=== PATIENT | male | born 1980 | race Caucasian/White ===

== ENCOUNTER 2017-10-03 15:15 | Emergency (ER) | payer OTHER ==
[~2017-10-03] VITALS: Ht 180.3 cm; Wt 65.0 kg
[2017-10-03 15:19] VITALS: BP 133/85; PULSE 92; RESP 16; TEMP 98.8; O2SAT 99
--- NOTE | 2017-10-03 16:56 | PD ---
HPI Chief Complaint: Oral / Dental Pain or Problem Time Seen by Provider: 16:40 Travel History International Travel<30 days: No Contact w/Intl Traveler<30days: No Traveled to known affect area: No History of Present Illness HPI 37-year-old male presents to the emergency department with complaint of right lower dental pain 5 days with facial swelling onset 4 days ago. Denies fever, vomiting. Denies sore throat, difficulty swallowing, unusual drooling, lump in throat. Rates pain 8/10. Pain is constant. No known relieving factors. Constantly aggravated. Has not taken any medication or try any treatments to alleviate his symptoms. Primary care provider is the [facility]. Does not have a dentist he can follow-up with. No known allergies. Denies significant past medical history. Has no other medical complaints. No other modifying factors or associated signs and symptoms. PFSH Past Medical History Medical History: Denies Significant Hx Tetanus Vaccination: < 5 Years Past Surgical History Surgical History: No Previous Surgery Social History Alcohol Use: No Tobacco Use: No Substance Use: No Allergies-Medications (Allergen,Severity, Reaction): Coded Allergies: No Known Allergies (Unverified , 10/03/17) Reported Meds & Prescriptions Reported Meds & Active Scripts Active Ibuprofen 800 Mg Tab 800 Mg PO Q8H PRN Tramadol (Tramadol HCl) 50 Mg Tab 50 Mg PO Q4H PRN Clindamycin (Clindamycin HCl) 150 Mg Cap 450 Mg PO Q6H 10 Days Deltasone (Prednisone) 20 Mg Tab 20 Mg PO BID 5 Days START 10/04/2017 Review of Systems Except as stated in HPI: all other systems reviewed are Neg Physical Exam Narrative GENERAL: Well-nourished, well-developed patient, in no acute distress ; afebrile, nontoxic-appearing SKIN: Warm and dry. HEAD: Atraumatic. Normocephalic. Right lower facial edema; without erythema, and with tenderness on palpation. No lymphadenopathy. EYES: Pupils equal and round. No scleral icterus. No injection or drainage. ENT: Mucosa pink and moist. No erythema or exudates. No uvular edema. No uvular , palatal, or tonsillar deviation. Airway patent. EARS: Bilateral pinnae and external canals appear within normal limits. Bilateral tympanic membranes without erythema, dullness or perforation. MOUTH: Mucous membranes moist, no lesions, tongue and gums appear normal. Very poor dentition throughout with multiple dental cavities and tooth decay. Right lower dental abscess; gingiva with edema; very minimal outpouching of the gingiva; without fluctuance. NECK: Trachea midline. No lymphadenopathy. CARDIOVASCULAR: Regular rate. RESPIRATORY: No accessory muscle use. GASTROINTESTINAL: Flat. MUSCULOSKELETAL: No obvious deformities. No clubbing. No cyanosis. No edema. NEUROLOGICAL: Awake and alert. Oriented 3. No obvious cranial nerve deficits. Motor grossly within normal limits. Normal speech. PSYCHIATRIC: Appropriate mood and affect; insight and judgment normal. Data Data Last Documented VS Vital Signs Date Time Temp Pulse Resp B/P (MAP) Pulse Ox O2 Delivery O2 Flow Rate FiO2 10/03/17 15:19 98.8 92 16 133/85 (101) 99 Orders Orders Iv Access Insert/Monitor (10/03/17 17:10) Clindamycin 600 Mg/Ns Premix (Cleocin 60 (10/03/17 17:15) Dexamethasone Inj (Decadron Inj) (10/03/17 17:15) Ketorolac Inj (Toradol Inj) (10/03/17 17:15) Acetamin-Hydrocod 325-5 Mg (Beulah 5-325 (10/03/17 17:15) Clindamycin Inj (Cleocin Inj) (10/03/17 17:30) MDM Medical Decision Making Medical Screen Exam Complete: Yes Emergency Medical Condition: Yes Medical Record Reviewed: Yes Differential Diagnosis Dental abscess, dental caries, gingivitis, dentalgia Narrative Course 37-year-old male with very poor dentition throughout and multiple dental cavities. Right lower dental abscess noted. The right lower gingiva has very minimal outpouching and is edematous. There is no fluctuance to the area at this time. IV, IV clindamycin 600 mg, Decadron 8 mg, Toradol, Beulah ordered. Discussed need for incision and drainage of area of the gingiva becomes larger and becomes fluctuant, despite therapy. Instructed patient to return to the emergency department for incision and drainage if worsening. Patient verbalized understanding and agreement. Patient provided emergency dental information sheet. Instructed patient to follow-up with dentist. Clindamycin, Deltasone, ibuprofen, tramadol prescribed for home. Instructed patient to follow up with primary care provider. Patient verbalizes understanding and agreement with treatment plan. Patient is medically cleared and stable for discharge. Discussed reasons to return to the emergency department. Patient agrees with treatment plan. The patients vital signs are stable and the patient is stable for outpatient follow-up and treatment. Patient discharged home, stable and in no acute distress. Diagnosis Primary Impression: Dental abscess Referrals: Dentist Primary Care Physician Patient Instructions: Dental Abscess (ED), Dental Caries (ED), General Instructions Departure Forms: Tests/Procedures, Work Release Enter return to work date: Oct 05, 2017 Additional Instructions: Complete full course of antibiotics Ibuprofen or Tylenol as directed and as needed to reduce pain and inflammation Use Magic mouthwash rinse as directed and as needed to decrease pain Use Peridex as directed for oral hygiene Warm or cool compresses to the affected area Follow-up with dentist Follow-up with primary care provider Return to emergency department immediately with worsening of symptoms Med/Other Pt SpecificInfo: Prescription(s) given Scripts Ibuprofen (Ibuprofen) 800 Mg Tab 800 MG PO Q8H Y for PAIN SCALE 1 TO 10, #30 TAB 0 Refills Prov: Janki Quintanilla 10/03/17 Tramadol (Tramadol) 50 Mg Tab 50 MG PO Q4H Y for PAIN, #10 TAB 0 Refills Prov: Janki Quintanilla 10/03/17 Clindamycin (Clindamycin) 150 Mg Cap 450 MG PO Q6H for Infection for 10 Days, #120 CAP 0 Refills Prov: Janki Quintanilla 10/03/17 Prednisone (Deltasone) 20 Mg Tab 20 MG PO BID for 5 Days, #10 TAB 0 Refills START 10/04/2017 Prov: Janki Quintanilla 10/03/17 Disposition: 01 DISCHARGE HOME Condition: Stable Janki Quintanilla Oct 03, 2017 16:56
[2017-10-03] MEDS ORDERED: PRED-503 PO (17:14)
[2017-10-03] MEDS ORDERED: CLIN150C14 PO (17:14)
[2017-10-03] MEDS ORDERED: IBUP1TAB7 PO (17:14)
[2017-10-03] MEDS ORDERED: TRAM50TA PO (17:14)
[2017-10-03] MEDS ORDERED: KETOROLAC TROMETHAMINE 30 MG/ML (IVP) VIAL IV PUSH ONE (17:15)
[2017-10-03] MEDS ORDERED: ACETAMINOPHEN/HYDROcodone 325 MG/5 MG TAB PO ONE (17:15)
[2017-10-03] MEDS ORDERED: DEXAMETHASONE SOD PHOS 4 MG/ML VIAL IV PUSH ONE (17:15)
[2017-10-03] MEDS ORDERED: CLINDAMYCIN 600 MG/NS PREMIX 50 ML IV ONE (17:15)
[2017-10-03] MEDS ORDERED: CLINDAMYCIN 600 MG/NS 100 ML IV ONE ×2 (17:30)
== END 2017-10-03 18:50 | disposition home or self-care (01) ==
LOC: NEPK 15:15
DX: K04.7 Periapical abscess without sinus (principal)
CPT/HCPCS: 96374; 96375; 99284; J1100; J1885